=== PATIENT | male | born 2000 | race Caucasian/White ===

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

== ENCOUNTER 2019-01-02 18:42 | Emergency (ER) | payer OTHER ==
[~2019-01-02] VITALS: Ht 180.3 cm; Wt 66.4 kg
[2019-01-02 18:47] VITALS: BP 128/61
[2019-01-02] MEDS ORDERED: IBUP-1022 PO (19:28)
--- NOTE | 2019-01-03 08:32 | REP ---
Right knee series: Five views. History: Injury in a fall. Findings: Five views of the right knee show clothing artifact over the distal thigh. No fracture, subluxation, or evidence of joint effusion is seen. Impression: Negative radiographs of the right knee. Electronically Signed by Kiran Luis MD 01/03/2019 08:23 A
== END 2019-01-02 19:50 | disposition home or self-care (01) ==
LOC: M ED 18:42
DX: S83.91XA Sprain of unspecified site of right knee, initial encounter (principal); X50.1XXA Overexertion from prolonged static or awkward postures, initial encounter; Y92.9 Unspecified place or not applicable; Y93.9 Activity, unspecified; Y99.9 Unspecified external cause status